=== PATIENT | female | born 1955 | race Caucasian/White ===

== ENCOUNTER 2023-10-15 09:21 | Emergency (ER) | payer OTHER ==
[~2023-10-15] VITALS: Ht 160 cm; Wt 65.8 kg
[2023-10-15 09:35] VITALS: BP 160/80; PULSE 72; RESP 16; O2SAT 98
== END 2023-10-15 10:20 | disposition home or self-care (01) ==
LOC: EDH 09:21
DX: S69.82XA Other specified injuries of left wrist, hand and finger(s), initial encounter (principal); E03.9 Hypothyroidism, unspecified; E78.00 Pure hypercholesterolemia, unspecified; I10 Essential (primary) hypertension; Z98.890 Other specified postprocedural states; X50.0XXA Overexertion from strenuous movement or load, initial encounter; Y93.89 Activity, other specified; Y92.89 Other specified places as the place of occurrence of the external cause; Y99.8 Other external cause status
CPT/HCPCS: 29105; 73110